=== PATIENT | male | born 1990 | race African-American/Black ===

== ENCOUNTER 2020-04-11 14:51 | Emergency (ER) | payer OTHER ==
[~2020-04-11] VITALS: Ht 149.9 cm; Wt 72.6 kg
[2020-04-11 14:57] VITALS: Ht 149.9 cm; Wt 72.6 kg
[2020-04-11 15:45] LABS: BASOPHIL % 0.3 % (0-2); PLATELET COUNT 287 x10^3mcL (130-400)
[2020-04-11 15:48] LABS: RED CELL DISTRIBUTION WIDTH 16.6 % (11.5-14.5)
[2020-04-11 16:10] LABS: CALCIUM 9.6 mg/dL (8.5-10.1); CARBON DIOXIDE 34.6 mmol/L (21-32); CHLORIDE SERUM 101 mmol/L (98-107); GFR1 > 60 mL/min; GLUCOSE SERUM 91 mg/dL (74-106); POTASSIUM SERUM 4.3 mmol/L (3.5-5.1); SODIUM SERUM 139 mmol/L (136-145)
[2020-04-11 16:27] LABS: ALBUMIN 3.5 g/dL (3.4-5.0); ALKALINE PHOSPHATASE 92 U/L (46-116); ALT/SGPT 15 U/L (16-63); AST/SGOT 8 U/L (15-37); BILIRUBIN TOTAL 0.29 mg/dL (0.20-1.00); CHOLESTEROL 146 mg/dL (<200); LIPASE 60 IU/L (73-393); T4(THYROXINE) 8.3 ug/dL (4.7-13.3); TOTAL PROTEIN, SERUM 7.6 g/dL (6.4-8.2)
[2020-04-11 16:29] LABS: HDL CHOLESTEROL 33 mg/dL (40-60)
[2020-04-11 16:33] LABS: microscopic required? YES; urine erythrocyte NEGATIVE (NEGATIVE)
[2020-04-11 16:44] LABS: AMPHETAMINE QUAL UR NONE DETECTED (See below)
[2020-04-11 19:31] VITALS: BP 112/75
== END 2020-04-11 19:30 | disposition home or self-care (01) ==
LOC: ED 14:51
PROVIDERS: Emergency Medicine
DX: R55 Syncope and collapse (principal); F12.90 Cannabis use, unspecified, uncomplicated; F84.0 Autistic disorder; H91.3 Deaf nonspeaking, not elsewhere classified
CPT/HCPCS: 82962; 83880; J7030; Q0092